=== PATIENT | male | born 1995 | race Caucasian/White ===

== ENCOUNTER 2025-04-26 12:03 | Emergency (ER) | payer SELFPAY ==
[2025-04-26 12:11] VITALS: BP 130/79; PULSE 75; RESP 16; TEMP 36.7; O2SAT 98; BMI 20.9
--- NOTE | 2025-04-26 12:18 | HMH.EDGENADL ---
Discharge Plan Disposition Patient Disposition: Home, Self-Care Prescriptions Prescriptions: No Action mupirocin 22 GM Tube 1 applicatio topical BID Qty: 1 0RF Rx Instructions: Apply twice a day mupirocin 22 GM Tube 1 applicatio topical BID Qty: 1 0RF mupirocin 22 GM Tube 1 applicatio topical BID Qty: 1 0RF Referrals Follow up/Referrals: Shankar Muhammad MD [Primary Care Provider, Internal Medicine] - See instructions Activity Restrictions/Add. Instructions Additional Instructions/Restrictions: Today you were evaluated in the emergency department and we removed a insect from your right ear. Your ear canal is irritated at this time however the tympanic membrane is intact. You were given Ativan, please do not drive the rest of the day. Rest and increase your fluid intake today. You may feel dizzy from having your ear irrigated. This should go away within 24 hours. Please follow-up with your PCP. Return to the ED for worsening of condition. Clinical Impressions Clinical Impression: FB ear Qualifiers: Encounter type: initial encounter Instructions Patient Instructions: DI for Removal of Foreign Body From Ear Print Language Print Language: Romansh Discharge ED Provider: Jared Garcia General Adult HPI <Christy Allen APRN - Last Filed: 04/26/25 14:04> General Chief complaint: Skin/Abscess/Foreign Body Stated complaint: Foreign object in R ear Time Seen by Provider: 04/26/25 12:11 History of Present Illness HPI narrative: Pt is a 29 year old male, no significant PMHx who presents to the ED for FB in R ear x 12 hours. He states he was standing and heard a buzzing in his ear, slapped his ear and felt the buzzing inside of his right ear. Patient and family has tried to flush the bug out with water, oil and other techniques without success. States that he does not feel of the insect moving any longer. Related Data Previous Rx's ?Medication ?Instructions ?Recorded mupirocin 2 % topical ointment 1 applicatio topical BID ##1 09/26/18 mupirocin 2 % topical ointment 1 applicatio topical BID ##1 09/26/18 mupirocin 2 % topical ointment 1 applicatio topical BID ##1 09/26/18 Allergies Allergy/AdvReac Type Severity Reaction Status Date / Time No Known Allergies Allergy Verified 05/17/18 11:17 PFSH <Christy Allen APRN - Last Filed: 04/26/25 14:04> [facility] Disclaimer: The information contained in this section may have been updated after the patient was seen, as this information can be updated by other users. Social History (Updated 04/26/25 @ 14:04 by Christy Allen APRN) Smoking Status: Current every day smoker tobacco type: cigarettes second hand exposure: Yes alcohol intake: never current occupational status: unemployed Travel in the last 8 weeks?: None Have you lived/traveled outside [place] in past 30 days?: No Contact w/someone who lives/traveled outside [place] past 30 days?: No Exposure to someone with infectious disease in past 14 days?: No Do you have a fever (greater than 100.4 F or 38 C)?: No Have you tested positive for COVID-19?: No Exposed to someone with COVID-19 in past 14 days?: No Do you have a sore throat?: No Do you have a cough?: No Do you have any weakness?: No Do you have any diarrhea?: No Are you experiencing any unusual bleeding?: No Do you have any muscle aches/pain?: No Do you have any abdominal pain?: No Are you experiencing loss of taste or smell?: No <Christy Allen APRN - Last Filed: 04/26/25 14:04> ROS Obtained: Yes Systems reviewed as appropriate & no additional complaints except as documented Physical Exam <Christy Allen APRN - Last Filed: 04/26/25 14:04> General General appearance: alert Eye Eye exam: Present normal appearance ENT ENT exam: Present other (R ear canal erythematous, large brown FB noted covering TM, unable to visualize TM ) Neck Neck exam: Present full ROM Respiratory Respiratory exam: Absent respiratory distress Cardiovascular Cardiovascular exam: Present regular rate Neurological Exam Neurological exam: Present alert and oriented X3 Skin Skin exam: Present warm and dry Medical Decision Making <Christy Allen APRN - Last Filed: 04/26/25 14:04> Medical Records Screening: Per USPSTF and CDC recommendations, given the prevalence of disease in our region, it is our hospital?s policy to screen for HIV and viral Hepatitis for all patients aged 18 and over and those with ongoing risk factors. [place] Inquiry Pt receiving controlled substance: No Vital Signs: 04/26/25 12:11 04/26/25 14:06 Temperature 98.1 F 98.4 F Temperature Source Oral Oral Pulse Rate 78 Pulse Rate [Right] 75 Respiratory Rate 16 18 Blood Pressure 120/87 Blood Pressure [Right Arm] 130/79 Blood Pressure Mean [Right Arm] 96 Blood Pressure Source Automatic Cuff Blood Pressure Position Sitting 02 Sat by Pulse Oximetry 98 Oxygen Delivery Method Room Air Room Air Orders (Tests/Meds): ED MEDICATIONS Discontinued Medications Generic Name Dose Route Start Last Admin Trade Name Marlin PRN Reason Stop Dose Admin Docusate Sodium 10 ml 04/26/25 12:52 04/26/25 13:02 Docusate Sodium 10 Ml/Udc Udc PO 04/26/25 12:53 10 ml DAILY ONE Administration Lidocaine HCl 1 ml 04/26/25 14:07 04/26/25 14:09 Lidocaine 2% Urojet 10ml TP 04/26/25 14:08 1 ml ONCE ONE Administration Lorazepam 1 mg 04/26/25 13:37 04/26/25 13:51 Lorazepam 1mg Tablet PO 04/26/25 13:38 1 mg ONCE ONE Administration Medical Decision Narrative: In summary, Pt is a 29 year old male, no significant PMHx who presents to the ED for FB in R ear x 12 hours. He states he was standing and heard a buzzing in his ear, slapped his ear and felt the buzzing inside of his right ear. Patient and family has tried to flush the bug out with water, oil and other techniques without success. States that he does not feel of the insect moving any longer. Denies fever, chills, body aches, headache, visual disturbances, posterior neck pain. Upon initial evaluation, patient is alert, oriented and cooperative. Upon examination of his right ear, insect noted, irritated and erythematous right ear canal, unable to visualize TM at this time. Attempted to remove insect with alligator forceps, unsuccessful. Patient's ear was irrigated multiple times, we administered Ativan 1 mg p.o. during this as it was uncomfortable for the patient. Topical lidocaine was used in the ear canal. Patient tolerated attempts well. During one of the irrigation attempts, insect was removed out of the right ear. Post removal examination reveals irritated right ear canal, TM intact, no damage to TM visualized. I discussed with patient that he may feel dizzy from the irrigation of his right ear upon standing for several hours today. I also advised him not to drive due to this and he was given Ativan while in the ED. Patient and family verbalized understanding. We discussed not putting anything in his ear. We discussed following up with PCP and returning to the ED for worsening of condition. <Jared Garcia MD - Last Filed: 04/26/25 17:11> Vital Signs: 04/26/25 12:11 04/26/25 14:06 Temperature 98.1 F 98.4 F Temperature Source Oral Oral Pulse Rate 78 Pulse Rate [Right] 75 Respiratory Rate 16 18 Blood Pressure 120/87 Blood Pressure [Right Arm] 130/79 Blood Pressure Mean [Right Arm] 96 Blood Pressure Source Automatic Cuff Blood Pressure Position Sitting 02 Sat by Pulse Oximetry 98 Oxygen Delivery Method Room Air Room Air Orders (Tests/Meds): ED MEDICATIONS Discontinued Medications Generic Name Dose Route Start Last Admin Trade Name Marlin PRN Reason Stop Dose Admin Docusate Sodium 10 ml 04/26/25 12:52 04/26/25 13:02 Docusate Sodium 10 Ml/Udc Udc PO 04/26/25 12:53 10 ml DAILY ONE Administration Lidocaine HCl 1 ml 04/26/25 14:07 04/26/25 14:09 Lidocaine 2% Urojet 10ml TP 04/26/25 14:08 1 ml ONCE ONE Administration Lorazepam 1 mg 04/26/25 13:37 04/26/25 13:51 Lorazepam 1mg Tablet PO 04/26/25 13:38 1 mg ONCE ONE Administration Medical Decision Narrative: In summary, Pt is a 29 year old male, no significant PMHx who presents to the ED for FB in R ear x 12 hours. He states he was standing and heard a buzzing in his ear, slapped his ear and felt the buzzing inside of his right ear. Patient and family has tried to flush the bug out with water, oil and other techniques without success. States that he does not feel of the insect moving any longer. Denies fever, chills, body aches, headache, visual disturbances, posterior neck pain. Upon initial evaluation, patient is alert, oriented and cooperative. Upon examination of his right ear, insect noted, irritated and erythematous right ear canal, unable to visualize TM at this time. Attempted to remove insect with alligator forceps, unsuccessful. Patient's ear was irrigated multiple times, we administered Ativan 1 mg p.o. during this as it was uncomfortable for the patient. Topical lidocaine was used in the ear canal. Patient tolerated attempts well. During one of the irrigation attempts, insect was removed out of the right ear. Post removal examination reveals irritated right ear canal, TM intact, no damage to TM visualized. I discussed with patient that he may feel dizzy from the irrigation of his right ear upon standing for several hours today. I also advised him not to drive due to this and he was given Ativan while in the ED. Patient and family verbalized understanding. We discussed not putting anything in his ear. We discussed following up with PCP and returning to the ED for worsening of condition. I was consulted by the HETAL, and we discussed the complexity of the problems being addressed. I approve the treatment and management plan for this patient's care in the emergency department, thus performing a substantive portion of the medical decision making. Jared Garcia MD Critical Care <Christy Allen, [employer]ER - Last Filed: 04/26/25 14:04> Critical Care Time Critical Care Time: No
--- NOTE | 2025-04-26 12:44 | PC.NURSE ---
Provider at bedside.
[2025-04-26] MEDS: DOCUSATE SODIUM 10 ML/UDC UDC PO (13:02)
[2025-04-26 14:06] VITALS: BP 120/87; PULSE 78; RESP 18; TEMP 36.9; O2SAT 98
[2025-04-26] MEDS: LIDOCAINE 2% UROJET 10ML TP (14:09)
== END 2025-04-26 14:05 | disposition home or self-care (01) ==
PROVIDERS: Emergency Provider Student in an Organized Health Care Education/Training Program; PCP Internal Medicine Adolescent Medicine
DX: T16.1XXA Foreign body in right ear, initial encounter (principal); F17.210 Nicotine dependence, cigarettes, uncomplicated
CPT/HCPCS: 99283